=== PATIENT | female | born 1990 | race Caucasian/White ===

== ENCOUNTER → 2019-04-23 | Outpatient (CLI) | payer OTHER, SELFPAY ==
[2019-04-23 07:47] LABS: Estradiol 135.7 pg/mL; Thyroid Stim Hormone (TSH) 2.48 uIU/mL (0.358-3.74)
[2019-04-23 08:25] LABS: Progesterone Level 32.71 ng/mL (See Comment)
== END | disposition home or self-care (01) ==
LOC: LAB 06:57
DX: E28.9 Ovarian dysfunction, unspecified (principal)
CPT/HCPCS: 36415; 82670; 84144; 84443

== ENCOUNTER → 2019-04-27 | Outpatient (CLI) | payer OTHER, SELFPAY ==
[2019-04-27 15:43] LABS: hCG Titer Quant., Serum 85 mIU/mL (1-3)
== END | disposition home or self-care (01) ==
DX: E28.9 Ovarian dysfunction, unspecified (principal)
CPT/HCPCS: 36415; 84144; 84702

== ENCOUNTER → 2019-04-30 | Outpatient (CLI) | payer OTHER, SELFPAY ==
[2019-04-30 08:28] LABS: hCG Titer Quant., Serum 372 mIU/mL (1-3)
[2019-04-30 08:39] LABS: Estradiol 255.5 pg/mL; Thyroid Stim Hormone (TSH) 1.64 uIU/mL (0.358-3.74)
[2019-04-30 09:18] LABS: Progesterone Level 23.93 ng/mL (See Comment)
== END | disposition home or self-care (01) ==
LOC: LAB 06:46
DX: Z32.01 Encounter for pregnancy test, result positive (principal)
CPT/HCPCS: 36415; 82670; 84144; 84443; 84702

== ENCOUNTER → 2019-05-07 | Outpatient (CLI) | payer OTHER, SELFPAY ==
[2019-05-07 07:24] LABS: Estradiol 273.3 pg/mL
[2019-05-07 07:38] LABS: hCG Titer Quant., Serum 4877 mIU/mL (1-3)
[2019-05-07 09:04] LABS: Progesterone Level 31.56 ng/mL (See Comment)
== END | disposition home or self-care (01) ==
LOC: LAB 06:47
DX: Z32.01 Encounter for pregnancy test, result positive (principal)
CPT/HCPCS: 36415; 82670; 84144; 84443; 84702

== ENCOUNTER → 2019-05-14 | Outpatient (CLI) | payer OTHER, SELFPAY ==
[2019-05-14 07:24] LABS: Estradiol 294.9 pg/mL; Thyroid Stim Hormone (TSH) 1.31 uIU/mL (0.358-3.74)
[2019-05-14 07:38] LABS: hCG Titer Quant., Serum 20651 mIU/mL (1-3)
== END | disposition home or self-care (01) ==
DX: O09.00 Supervision of pregnancy with history of infertility, unspecified trimester (principal); Z3A.00 Weeks of gestation of pregnancy not specified
CPT/HCPCS: 36415; 82670; 84144; 84443; 84702

== ENCOUNTER 2019-12-27 19:00 | Inpatient (IN) | payer OTHER, SELFPAY ==
[2019-12-27 19:36] VITALS: BP 121/72; PULSE 109; TEMP 99; O2SAT 96; O2SAT 99
--- NOTE | 2019-12-27 19:55 | PCM.HP.OB ---
History Date of Admission: 12/27/19 Final NEERAJ: 01/04/20 Final NEERAJ Source: [place] <20 weeks Gestational age: 38 Weeks and 6 Days History of this : This is a 29 year-old, at 38.6 weeks for induction of labor for maternal obesity, BMI 48, Elevated MSAFP as recommended by MFM. Denies LOF, VB, or regular contractions. Smoking Status: Never smoker Alcohol: None Number of Fetus(es): 1 NST - FHR Rate Baby A Baseline: 150 Variability:: Moderate Accelerations:: 15 x 15 Decelerations:: None NST Reactive:: Yes FHR Category:: Category I Uterine Activity:: No contractions History Past Pregnancies: Past Pregnancies Delivery Date Name GA/ Weeks Outcome Route Wt Infant Sex Labor Length Anesthesia Delivery Location Provider FOB Labs: GBS - HB- HIV NR RPR- NR A+ Expected Infant Delivery Method: Spontaneous Vaginal Physical Exam General: Alert, Oriented x3 Abdomen: Gravid Neurological: Cranial nerves II-XII grossly intact Estimated gestational size: Large for gestational age Presentation: Cephalic Cervix Dilation (cm): 0 Assessment/Plan This is a 29 year-old, at .38.6 weeks gestation here for induction of labor. 1. Admit to L&D 2. Monitor FHR/TOCO 3. Cytotec for cervical ripening 4. Anticipate 5. Epidural if requested for pain
[2019-12-27 20:00] LABS: Absolute Lymphocyte Count 1.89 X10^3/uL (0.83-4.51); Absolute Neutrophil Count 11.5 X10^3/uL (2.0-7.7); Basophil# 0.04 X10^3/uL; Basophil% 0.3 % (0-1); Eosinophils% 0.7 % (0-5); Hematocrit 35.3 % (37-47); Hemoglobin 11.5 g/dL (12.0-15.0); Lymphocyte # 1.89 X10^3/ul (4.0); Lymphocyte % 13.1 % (19-41); Mean Corp Hgb Conc 32.6 g/dL (32-36); Mean Corpuscular Hgb 28.6 pg (27.0-32.0); Mean Corpuscular Volume 87.8 fL (81-99); Mean Platelet Vol. 11.1 fl (6.2-12.0); Monocyte# 0.71 X10^3/uL; Monocyte% 4.9 % (0-10); NRBC Flagged by Analyzer 0 % (0-5); Neutrophil # 11.53 X10^3/uL (2.7-7.7); Neutrophil % 79.9 % (47-70); Platelet Count 240 K/mm3 (150-450); RBC Distribution Width SD 50.9 fl (35.1-43.9); Red Blood Count 4.02 M/mm3 (4.2-5.4); White Blood Count 14.4 K/mm3 (4.4-11.0)
[2019-12-27 20:01] VITALS: BMI 48.2
[2019-12-27] MEDS: miSOPROStol 25 MCG TABLET PO (20:34)
[2019-12-27 21:47] VITALS: TEMP 97.4; O2SAT 98
[2019-12-27 21:48] VITALS: BP 116/55; PULSE 86
[2019-12-28] VITALS (64 sets, daily range): BP systolic 99–140; BP diastolic 50–95; PULSE 83–126; TEMP 36.1–37.3; O2SAT 96–100
--- NOTE | 2019-12-28 00:34 | PCM.PN.BLA ---
Progress Note Patient resting comfortably through the night. Some irregular contractions noted via TOCO. Second dose of Cytotec PO given. CE- C/T/H. Will continue to monitor.
[2019-12-28] MEDS: miSOPROStol 25 MCG TABLET PO ×2 (00:52→04:35)
--- NOTE | 2019-12-28 06:43 | PN_ITS ---
Progress Note Patient sleeping well through the night. Does not feel any contractions. FHT's 135bpm moderate variability. [place] picking up occasional contractions. Cat 1 tracing. Cytotec PO #3 given. CE= C/T/H. 1. Continue plan of care 2. Anticipate
[2019-12-28] MEDS: 0.9% Normal Saline Single 100 ML IV.SOLN. IY (07:00)
--- NOTE | 2019-12-28 07:07 | PCM.PN.BLA ---
Progress Note Seen at bedside, doing well. Patient reports feeling some contractions. Vaginal exam fingertip/50/-3. Garcia catheter was placed with 30 cc of normal saline. We will start Pitocin at approximately 830.
[2019-12-28] MEDS: Oxytocin 30 units/NS 500 ml 30 UNITS/500 ML IV.SOLN IV (08:53)
[2019-12-28] MEDS: Lactated Ringers 1,000 ML 50 ML IV (08:54)
--- NOTE | 2019-12-28 12:42 | PCM.PN.BLA ---
Progress Note pt seen up to chair- still comfortable. intracervical dennis out - per nursing JENNIFER 60/-3. will continue pitocin at this time. STROKE Vital Signs/Narrative: Vital Signs Temp Pulse Pulse Ox 12/28/19 12:07 97.3 F L 100 12/28/19 11:01 84 12/28/19 11:00 97.0 F L 98 12/28/19 10:52 98.3 F 126 H 12/28/19 10:35 83 12/28/19 10:02 87 12/28/19 09:33 93 12/28/19 09:29 97.0 F L 12/28/19 08:50 91
--- NOTE | 2019-12-28 17:09 | PCM.PN.BLA ---
Progress Note S: Patient feeling ctxs O: cvx - 3/70/-3 AROM clear fluid FSE & IUPC placed fhts 140 with mod variability, accels tocos Q2 min A&P: Continue pitocin induction Plan of care discussed with patient & her family STROKE Vital Signs/Narrative: Vital Signs Temp Pulse BP Pulse Ox 12/28/19 15:32 98 124/58 H 12/28/19 15:31 98.4 F 12/28/19 14:24 98.0 F 97 131/81 H 96 12/28/19 13:46 103 H 125/78 H 12/28/19 13:45 97.9 F
[2019-12-28] MEDS: Lactated Ringers 500 ML 999 ML IV (17:37)
[2019-12-28] MEDS: fentaNYL-bupivacaine (epidural) 100 ML BAG EPIDURAL ×2 (19:21→22:46)
[2019-12-28] MEDS: Lactated Ringers 1,000 ML 250 ML IV ×2 (21:07→22:10)
[2019-12-29] VITALS (36 sets, daily range): BP systolic 90–125; BP diastolic 47–84; PULSE 95–129; RESP 16–18; TEMP 36.6–37.2; O2SAT 94–99
[2019-12-29] MEDS: Lactated Ringers 1,000 ML 250 ML IV (02:06)
[2019-12-29] MEDS: fentaNYL-bupivacaine (epidural) 100 ML BAG EPIDURAL (03:44)
[2019-12-29] MEDS: Sodium Citrate/Citric Acid 30 ML UDC PO (05:49)
[2019-12-29] MEDS: Methylergonovine 0.2 MG/ML Ampul IM (06:38)
--- NOTE | 2019-12-29 07:26 | OP.PCM_ITS ---
Report of Operation Surgery/Procedure Performed:: Primary low transverse section Description of Surgical Findings:: Normal maternal uterus and adnexa Delivery Final NEERAJ: 01/04/20 Gestational age: 39 Weeks and 1 Days delicatessen store manager: Pia Archibald Type of Anesthesia:: Epidural Date of Procedure: 12/29/19 Pre-Operative Diagnosis: Failure to dilate Post-Operative Diagnosis: Failure to dilate Indications: Patient admitted for induction for elevated AFP and maternal obesity at 39 weeks. She had cytotec, intracervical dennis, AROM & pitocin. Patient failed to dilate past 3 cm & head remained high at -3. Thus decision was made to proceed with a primary section. Indications for : Failure to Progress Description of Procedure: Patient taken to OR where epidural anesthesia was dosed. She was prepped and draped in normal sterile fashion in a dorsal supine position with a leftward tilt. After ensuring adequacy of anesthesia the Pfannensteil skin incision was made and carried through to the underlying fascia with a bovie. The fascia was incised in the midline and carried laterally with the Arzola scissors. The rectus muscles were in the midline and the peritoneum was entered bluntly. The bladder flap was dissected down carefully with the Metzenbaum scissors and blunt dissection. The uterus was incised in a transverse fashion and then incision extended with cephalocaudad traction. The fetus was vertex and the head was brought to the incision in the flexed position. With good fundal pressure the head easily delivered. head was gently guided to allow delivery of anterior & posterior shoulders. No excess traction placed on head. The body delivered easily. The 3VC cord was clamped and cut after 1 minute delay and the infant handed off to the waiting RN. The placenta was delivered w/ gentle traction and fundal massage and the uterus was exteriorized and cleared of all clots and debris. The uterine incision was closed with 1 vicryl suture in a running locked fashion. The bovie was used to further obtain further hemostasis of the uterine incision. A second imbricating layer of monocryl was placed. 2 additional figure of eight sutures were placed to further obtain excellent hemostasis. The uterus was returned to the peritoneal cavity. The pelvis was irrigated & then cleared of all clots and debris. The uterine incision was reexamined and found to be hemostatic. Some fer was placed over the uterine incision due to the denuded areas. The parietal peritoneum was reapproximated with running vicryl suture. The fascia was closed with looped PDS suture in a running standard fashion. The subcutaneous tissue was examined & any bleeding bovie cauterized. The subcutaneous tissue was reapproximated with plain gut suture. The skin was closed in a subcuticular fashion by the [place] [employer]GE with me present in the labor and delivery suite. I performed the remainder of the procedure w/ assistance. Amniotic Membrane Rupture Type: Artificial Amniotic Fluid Description: Clear Placenta Disposition: [facility] Drain: Dennis to straight drain Fluids Replaced: 1500ml Cord Entanglement: None Esitmated Blood Loss (ml): 1,000ml Gender: Female - Kelley; weight = 8-10 (1 minute): 8 (5 minute): 9 Delayed cord clamping: Yes Antibiotic Given: Ancef 3 grams IV x1, Zithromax 500 mg/5 mL X1 Complications: None - Admit VTE Documentation VTE Present on Admission: No VTE Mechan Device Prophylaxis: SCD's VTE Pharm Prophylaxis ordered?: Yes
[2019-12-29] MEDS: Oxytocin 30 units/NS 500 ml 30 UNITS/500 ML IV.SOLN 167 UNITS IV (07:50)
--- NOTE | 2019-12-29 10:31 | NURSING ---
Epidural catheter removed, blue tip intact at 1015.
[2019-12-29] MEDS: Lactated Ringers 1,000 ML 100 ML IV (10:48)
[2019-12-29] MEDS: Ketorolac 30 MG/ML Syringe IV ×2 (14:30→20:39)
[2019-12-29] MEDS: 0.9% Saline Lock 10 ML Syringe IV ×2 (14:43→20:40)
[2019-12-30] VITALS (8 sets, daily range): BP systolic 106–122; BP diastolic 56–66; PULSE 103–110; RESP 16–18; TEMP 36.7–37.4; O2SAT 96–100
[2019-12-30] MEDS: Ketorolac 30 MG/ML Syringe IV ×4 (03:00→20:57)
[2019-12-30 06:57] LABS: Hematocrit 21.7 % (37-47); Mean Corp Hgb Conc 32.3 g/dL (32-36); Mean Corpuscular Hgb 28.8 pg (27.0-32.0); Mean Corpuscular Volume 89.3 fL (81-99); Mean Platelet Vol. 10.6 fl (6.2-12.0); Platelet Count 180 K/mm3 (150-450); Red Blood Count 2.43 M/mm3 (4.2-5.4); White Blood Count 12.9 K/mm3 (4.4-11.0)
[2019-12-30] MEDS: 0.9% Saline Lock 10 ML Syringe IV ×3 (08:13→20:57)
[2019-12-30] MEDS: Enoxaparin 40 MG/0.4 ML Syringe SC (10:18)
--- NOTE | 2019-12-30 10:46 | PCM.PN.OB ---
Subjective: Doing well per patient and nursing staff. Ambulating and taking PO without difficulty. Pain controlled. Garcia out and urinating, had bowel movement. Denies any chest pain, shortness of breath, dizziness, leg pain, or increased vaginal bleeding. , nursing support was having some difficulty. Planning D/C home tomorrow. - Physical Exam Vitals/I&O's: Vital Signs Temp Pulse Resp BP Pulse Ox 98.0 F 104 H 18 122/56 H 98 12/30/19 08:20 12/30/19 08:20 12/30/19 08:20 12/30/19 08:20 12/30/19 08:20 Oxygen Delivery Method Room Air Weight: 281 lb Body Mass Index (BMI) 48.2 Intake and Output for Last 24 Hours 12/28/19 12/29/19 12/31/19 23:59 23:59 00:59 Intake Total 2815.19 / 2815.19 5702.17 / 5702.17 Output Total 100 / 100 2100 / 2100 Balance 2715.19 / 2715.19 3602.17 / 3602.17 General: Alert, Oriented x3, Cooperative HEENT: Atraumatic, Normocephalic Neck: Trachea Midline Lungs: Clear to auscultation, Normal air movement, No rhonchi, No wheeze Cardiovascular: Regular rate, Regular Rhythm, No murmurs Abdomen: Bowel Sounds Present, Soft - Fundus firm 2 below U. Dressing dry and intact. Small amount of dry blood. Extremities: No edema Psych/Mental Status: Normal Affect, Appropriate Laboratory Results 12/30/19 06:40: WBC 12.9 H, RBC 2.43 L, Hgb 7.0 L, Hct 21.7 L, MCV 89.3, MCH 28.8, MCHC 32.3, RDW Std Deviation 52.0 H, RDW Coeff of Raj 16.0 H, Plt Count 180, MPV 10.6 Current Medications Acetaminophen (Tylenol) 1,000 mg PO Q8H PRN PRN Reason: Pain Score 1-3/10 Bisacodyl (Dulcolax) 10 mg RECTAL UD PRN PRN Reason: If no BM Enoxaparin Sodium (Lovenox) 40 mg SC DAILY@0600 [place] Last Admin: 12/30/19 10:18 Dose: 40 mg Documented by: Famotidine (Pepcid) 20 mg PO DAILY [facility] Ferrous Sulfate (Ferrous Sulfate) 325 mg PO 1200,1700 [facility] Hydrocortisone (Hytone) 1 applic TOPICAL TID PRN PRN; Protocol PRN Reason: Discomfort Naloxone HCl 4 mg/ Dextrose 504 mls @ 0 mls/hr IV .Q0M PRN; Protocol PRN Reason: Respiratory depression Naloxone HCl 4 mg/ Dextrose 504 mls @ 0 mls/hr IV .Q0M PRN; Protocol PRN Reason: To maintain Resp. rate >10 Ibuprofen (Motrin) 600 mg PO Q6H PRN PRN PRN Reason: Pain Score 1-3/10 Ketorolac Tromethamine (Toradol (Bkc)) 30 mg IV Q6H [facility] Stop: 12/31/19 08:01 Last Admin: 12/30/19 08:13 Dose: 30 mg Documented by: Levothyroxine Sodium (Synthroid) 25 mcg PO DAILY@0600 [facility] Methylergonovine Maleate (Methergine) 0.2 mg IM X1 PRN PRN Reason: Uterine Atony Last Admin: 12/29/19 06:38 Dose: 0.2 mg Documented by: Naloxone HCl (Narcan) 0.02 mg IV Q1M PRN PRN Reason: RR <10 and pt unresponsive Ondansetron HCl (Zofran) 4 mg IV Q4H PRN PRN PRN Reason: Nausea Oxycodone HCl (Oxyir) 5 - 10 mg PO Q4H PRN PRN PRN Reason: Pain Score 4-10/10 Multivit/Folic Acid/Iron (Prenatabs Fa) 1 tablet PO DAILY [facility] Prochlorperazine Edisylate (Compazine Iv) 10 mg IV Q6H PRN PRN PRN Reason: NAUSEA Senna/Docusate Sodium (Senokot-S, Lay-Colace) 0 tablet PO DAILY PRN PRN Reason: Constipation Simethicone (Mylicon) 80 mg PO PCHS PRN PRN Reason: Indigestion/stomach pain Last Admin: 12/29/19 20:39 Dose: 80 mg Documented by: Sodium Chloride () 5 - 15 ml IV UD PRN PRN Reason: SALINE FLUSH Last Admin: 12/30/19 08:13 Dose: 10 ml Documented by: Medical Necessity - Tobacco Use Smoking Status: Former smoker Assessment/Plan A:POD #1 Primary Low transverse section Acute blood loss anemia P: 1) Routine care. support 2) Ferrous Sulfate 325mg PO BID for anemia, to take stool softener 3) Pain controlled 4) Planning D/C home tomorrow
[2019-12-30] MEDS: Ferrous Sulfate 325 MG Tablet PO ×2 (12:10→18:23)
[2019-12-30] MEDS: Famotidine 20 MG Tablet PO (12:10)
[2019-12-30] MEDS: oxyCODONE 5 MG Tablet PO ×3 (12:33→23:30)
--- NOTE | 2019-12-30 12:40 | NURSING ---
Enedelia RN, called this RN regarding feeding plan. Order received to begin pumping q3hrs for 20 min, begin with massage for 15-30 seconds and then hand express, offer breast to baby for 3-5min and then pump. Use nipple shield as needed. Feed baby any expressed colostrum. SNEHAwguillaume IBCLC to see pt tomorrow morning at 0730. Mother informed of this feeding plan. Nathalia declines needing to see at this time, will inform RN if she changes her mind, will use telehealth today if needed. Dr. Childress made aware.
[2019-12-30] MEDS: Levothyroxine 25 MCG TABLET PO (13:29)
--- NOTE | 2019-12-30 15:13 | NURSING ---
Pt pumped from [id number] after instructed. No colostrum noted. Pt going to telehealth with Enedelia PEREZ lactation at 1600 for next feeding. Enedelia PEREZ aware.
[2019-12-31] VITALS (11 sets, daily range): BP systolic 103–128; BP diastolic 49–76; PULSE 93–103; RESP 16; TEMP 36.7–37.1; O2SAT 95–99
[2019-12-31] MEDS: 0.9% Saline Lock 10 ML Syringe IV ×6 (02:58→18:17)
[2019-12-31] MEDS: Ketorolac 30 MG/ML Syringe IV ×2 (02:58→09:28)
[2019-12-31 05:50] LABS: Absolute Lymphocyte Count 1.61 X10^3/uL (0.83-4.51); Absolute Neutrophil Count 7.7 X10^3/uL (2.0-7.7); Basophil# 0.03 X10^3/uL; Basophil% 0.3 % (0-1); Hematocrit 20.4 % (37-47); Hemoglobin 6.4 g/dL (12.0-15.0); Lymphocyte # 1.61 X10^3/ul (4.0); Lymphocyte % 15.9 % (19-41); Mean Corp Hgb Conc 31.4 g/dL (32-36); Mean Corpuscular Hgb 28.3 pg (27.0-32.0); Mean Corpuscular Volume 90.3 fL (81-99); Mean Platelet Vol. 10.7 fl (6.2-12.0); Monocyte# 0.59 X10^3/uL; Monocyte% 5.8 % (0-10); NRBC Flagged by Analyzer 0 % (0-5); Neutrophil # 7.74 X10^3/uL (2.7-7.7); Neutrophil % 76.3 % (47-70); Platelet Count 189 K/mm3 (150-450); RBC Distribution Width CV 16.2 % (11.6-14.6); RBC Distribution Width SD 53.9 fl (35.1-43.9); Red Blood Count 2.26 M/mm3 (4.2-5.4); White Blood Count 10.1 K/mm3 (4.4-11.0)
[2019-12-31] MEDS: Levothyroxine 25 MCG TABLET PO (06:12)
[2019-12-31] MEDS: Enoxaparin 40 MG/0.4 ML Syringe SC (06:12)
[2019-12-31] MEDS: oxyCODONE 5 MG Tablet PO ×3 (06:18→21:44)
--- NOTE | 2019-12-31 08:50 | PCM.PN.OB ---
Subjective: Patient doing well today. She denies lightheadedness or dizziness. She has only been ambulating in the room and down the halls. She notes fatigue this morning. She denies chest pain, shortness of breath, leg pain. Lochia normal. She is ambulating and voiding without difficulty. Tolerating regular diet. - Physical Exam Vitals/I&O's: Vital Signs Temp Pulse Resp BP Pulse Ox 98.6 F 93 16 103/54 L 95 12/31/19 03:00 12/31/19 03:00 12/31/19 03:00 12/31/19 03:00 12/31/19 03:00 Oxygen Delivery Method Room Air Weight: 281 lb Body Mass Index (BMI) 48.2 Intake and Output for Last 24 Hours 12/29/19 12/30/19 12/31/19 22:59 23:59 23:59 Intake Total Output Total Balance General: Alert, No apparent distress HEENT: Atraumatic Abdomen: Soft, Non Tender, - - FF@U, incision with dressing in place Extremities: No Calf Tenderness Skin: No rashes Neurological: Neuro grossly intact Psych/Mental Status: Normal Affect, Appropriate Laboratory Results 12/31/19 05:35: WBC 10.1, RBC 2.26 L, Hgb 6.4 L, Hct 20.4 L, MCV 90.3, MCH 28.3, MCHC 31.4 L, RDW Std Deviation 53.9 H, RDW Coeff of Raj 16.2 H, Plt Count 189, MPV 10.7, Immature Gran % (Auto) 0.700, Neut % (Auto) 76.3 H, Lymph % (Auto) 15.9 L, [place] % (Auto) 5.8, Eos % (Auto) 1.0, Baso % (Auto) 0.3, Absolute Neuts (auto) 7.7, Absolute Lymphs (auto) 1.61, Nucleated RBC % 0 Current Medications Acetaminophen (Tylenol) 1,000 mg PO Q8H PRN PRN Reason: Pain Score 1-3/10 Bisacodyl (Dulcolax) 10 mg RECTAL UD PRN PRN Reason: If no BM Enoxaparin Sodium (Lovenox) 40 mg SC DAILY@0600 [facility] Last Admin: 12/31/19 06:12 Dose: 40 mg Documented by: Famotidine (Pepcid) 20 mg PO DAILY [facility] Last Admin: 12/30/19 12:10 Dose: 20 mg Documented by: Ferrous Sulfate (Ferrous Sulfate) 325 mg PO 1200,1700 [facility] Last Admin: 12/30/19 18:23 Dose: 325 mg Documented by: Hydrocortisone (Hytone) 1 applic TOPICAL TID PRN PRN; Protocol PRN Reason: Discomfort Naloxone HCl 4 mg/ Dextrose 504 mls @ 0 mls/hr IV .Q0M PRN; Protocol PRN Reason: Respiratory depression Naloxone HCl 4 mg/ Dextrose 504 mls @ 0 mls/hr IV .Q0M PRN; Protocol PRN Reason: To maintain Resp. rate >10 Ibuprofen (Motrin) 600 mg PO Q6H PRN PRN PRN Reason: Pain Score 1-3/10 Levothyroxine Sodium (Synthroid) 25 mcg PO DAILY@0600 [facility] Last Admin: 12/31/19 06:12 Dose: 25 mcg Documented by: Methylergonovine Maleate (Methergine) 0.2 mg IM X1 PRN PRN Reason: Uterine Atony Last Admin: 12/29/19 06:38 Dose: 0.2 mg Documented by: Naloxone HCl (Narcan) 0.02 mg IV Q1M PRN PRN Reason: RR <10 and pt unresponsive Ondansetron HCl (Zofran) 4 mg IV Q4H PRN PRN PRN Reason: Nausea Oxycodone HCl (Oxyir) 5 - 10 mg PO Q4H PRN PRN PRN Reason: Pain Score 4-10/10 Last Admin: 12/31/19 06:18 Dose: 5 mg Documented by: Multivit/Folic Acid/Iron (Prenatabs Fa) 1 tablet PO DAILY [facility] Prochlorperazine Edisylate (Compazine Iv) 10 mg IV Q6H PRN PRN PRN Reason: NAUSEA Senna/Docusate Sodium (Senokot-S, Lay-Colace) 0 tablet PO DAILY PRN PRN Reason: Constipation Simethicone (Mylicon) 80 mg PO PCHS PRN PRN Reason: Indigestion/stomach pain Last Admin: 12/30/19 19:36 Dose: 80 mg Documented by: Sodium Chloride () 5 - 15 ml IV UD PRN PRN Reason: SALINE FLUSH Last Admin: 12/31/19 02:58 Dose: 10 ml Documented by: Medical Necessity - Tobacco Use Smoking Status: Former smoker Assessment/Plan Patient is postop day 2 from a section. She has acute blood loss anemia with a hemoglobin of 6.4 this morning. She notes fatigue. She has not been ambulating in the halls. Discussed risks and benefits of a blood transfusion and patient desires to proceed with 2 units of packed red blood cells. Consent was obtained at bedside. Routine postop care.
[2019-12-31] MEDS: Famotidine 20 MG Tablet PO (09:28)
[2019-12-31] MEDS: Prenatal Vits Tablet 1 TABLET PO (09:28)
[2019-12-31] MEDS: Senna/Docusate Sodium 1 Tablet PO (10:32)
[2019-12-31] MEDS: Ferrous Sulfate 325 MG Tablet PO ×2 (13:26→17:51)
[2019-12-31] MEDS: Ibuprofen 600 MG Tablet PO (17:51)
[2020-01-01] MEDS: Ibuprofen 600 MG Tablet PO ×2 (01:29→07:09)
[2020-01-01 01:31] VITALS: BP 111/71; PULSE 88; RESP 16; TEMP 36.9
[2020-01-01] MEDS: Levothyroxine 25 MCG TABLET PO (06:39)
[2020-01-01] MEDS: Enoxaparin 40 MG/0.4 ML Syringe SC (06:39)
--- NOTE | 2020-01-01 08:06 | DCINST_ITS ---
Discharge Diet: No Restrictions Discharge Activity: May not drive while taking narcotic pain medications., May Shower May resume sexual activity in: 6 weeks Weight Bearing Status: Weight bearing as tolerated Call your doctor if your incision/area has: Continuous Slow Oozing, Sudden Increased Bleeding, Increased Pain/ Swelling, Increased Redness, Foul Smelling Discharge, Swelling at the incision site Suture Line Care: Avoid Pulling/Pushing Cleanse incision/area with: Soap & Water Additional Instructions: If you experience any of the following, contact your healthcare provider. * Bleeding that soaks a pad every hour for 2 hours * Fever 100.4 or higher * Unrelieved incision or abdominal pain * Swelling, redness, discharge or bleeding from your incision or epi siotomy site * Your incision begins to separate * Problems urinating (including inability to urinate or burning while urinating). * Visual changes * Severe headache * Flu-like symptoms * Pain or redness in one of both of your breasts * Pain, warmth, tenderness or swelling in your legs, especially the calf area * Frequent nausea and vomiting * Symptoms of depression or anxiety If you experience any of the following, call 911 or go to the nearest Emergency Room. * Chest pain * Problems breathing * Seizure activity * Partial or complete paralysis of a body part, slurred speech, weakness or drooping of the face, or a sudden inability to walk or hold your balance Allergies/Adverse Reactions: Allergies No Known Allergies Allergy (Verified 12/27/19 20:02) Medications to take at Discharge Famotidine [Pepcid] 20 mg PO DAILY 12/27/19 Ferrous Sulfate [Slow Fe] 45 mg PO DAILY 12/27/19 Levothyroxine [Synthroid] 25 mcg PO DAILY 12/27/19 Vits [Prenatabs FA ] 1 tab PO DAILY 12/27/19 Acetaminophen [Tylenol] 1,000 mg PO Q8H PRN tablet 01/01/20 Ferrous Sulfate 325 mg PO 1200,1700 #60 tab 01/01/20 Ibuprofen [Motrin] 600 mg PO Q6H PRN PRN tablet 01/01/20 Oxycodone [Oxyir] 5 - 10 mg PO Q4H PRN PRN 4 Days #15 tab 01/01/20 The following prescriptions were given: Ferrous Sulfate 325 mg PO 1200,1700 #60 tab Prescription Printed Oxycodone [Oxyir] 5 - 10 mg PO Q4H PRN PRN 4 Days #15 tab PRN Reason: Pain Score 4-10/10 Prescription Printed Follow-Up: Call to make an appointment with your doctor for an incision check in 1-2 weeks. You will also need a 6 week post- follow up appointment. Test results from this visit will be discussed in further detail at your follow- up appointment, if applicable. Primary Care Physician: Tien Kirk MD [Primary Care Provider] -
--- NOTE | 2020-01-01 08:07 | PN.OBGYN_ITS ---
Subjective: No complaints. Feels improved after blood transfusion. - Physical Exam Vitals/I&O's: Vital Signs Temp Pulse Resp BP Pulse Ox 98.4 F 88 16 111/71 99 01/01/20 01:31 01/01/20 01:31 01/01/20 01:31 01/01/20 01:31 12/31/19 18:19 Oxygen Delivery Method Room Air Weight: 281 lb Body Mass Index (BMI) 48.2 Intake and Output for Last 24 Hours 12/30/19 12/31/19 01/01/20 23:59 23:59 23:59 Intake Total 800 / 800 Balance 800 / 800 General: Alert, Oriented x3 Abdomen: Soft, Non Tender, Non-Distended - ff mid & below umb; incision - bandage dry & intact Extremities: No Calf Tenderness Neurological: Cranial nerves II-XII grossly intact Laboratory Results 12/31/19 10:10: Blood Type A POSITIVE, Antibody Screen NEGATIVE, Crossmatch See Detail Current Medications Acetaminophen (Tylenol) 1,000 mg PO Q8H PRN PRN Reason: Pain Score 1-3/10 Bisacodyl (Dulcolax) 10 mg RECTAL UD PRN PRN Reason: If no BM Enoxaparin Sodium (Lovenox) 40 mg SC DAILY@0600 [facility] Last Admin: 01/01/20 06:39 Dose: 40 mg Documented by: Famotidine (Pepcid) 20 mg PO DAILY [facility] Last Admin: 12/31/19 09:28 Dose: 20 mg Documented by: Ferrous Sulfate (Ferrous Sulfate) 325 mg PO 1200,1700 [facility] Last Admin: 12/31/19 17:51 Dose: 325 mg Documented by: Hydrocortisone (Hytone) 1 applic TOPICAL TID PRN PRN; Protocol PRN Reason: Discomfort Naloxone HCl 4 mg/ Dextrose 504 mls @ 0 mls/hr IV .Q0M PRN; Protocol PRN Reason: Respiratory depression Naloxone HCl 4 mg/ Dextrose 504 mls @ 0 mls/hr IV .Q0M PRN; Protocol PRN Reason: To maintain Resp. rate >10 Sodium Chloride () 500 mls @ 15 mls/hr IV PRN PRN PRN Reason: Blood Transfusion Ibuprofen (Motrin) 600 mg PO Q6H PRN PRN PRN Reason: Pain Score 1-3/10 Last Admin: 01/01/20 07:09 Dose: 600 mg Documented by: Levothyroxine Sodium (Synthroid) 25 mcg PO DAILY@0600 [facility] Last Admin: 01/01/20 06:39 Dose: 25 mcg Documented by: Methylergonovine Maleate (Methergine) 0.2 mg IM X1 PRN PRN Reason: Uterine Atony Last Admin: 12/29/19 06:38 Dose: 0.2 mg Documented by: Naloxone HCl (Narcan) 0.02 mg IV Q1M PRN PRN Reason: RR <10 and pt unresponsive Ondansetron HCl (Zofran) 4 mg IV Q4H PRN PRN PRN Reason: Nausea Oxycodone HCl (Oxyir) 5 - 10 mg PO Q4H PRN PRN PRN Reason: Pain Score 4-10/10 Last Admin: 12/31/19 21:44 Dose: 5 mg Documented by: Multivit/Folic Acid/Iron (Prenatabs Fa) 1 tablet PO DAILY [facility] Last Admin: 12/31/19 09:28 Dose: 1 tablet Documented by: Prochlorperazine Edisylate (Compazine Iv) 10 mg IV Q6H PRN PRN PRN Reason: NAUSEA Senna/Docusate Sodium (Senokot-S, Lay-Colace) 0 tablet PO DAILY PRN PRN Reason: Constipation Last Admin: 12/31/19 10:32 Dose: 2 tablet Documented by: Simethicone (Mylicon) 80 mg PO PCHS PRN PRN Reason: Indigestion/stomach pain Last Admin: 12/30/19 19:36 Dose: 80 mg Documented by: Sodium Chloride () 5 - 15 ml IV UD PRN PRN Reason: SALINE FLUSH Last Admin: 12/31/19 18:17 Dose: 10 ml Documented by: Medical Necessity - Tobacco Use Smoking Status: Former smoker Assessment/Plan POD#3 D/c home Heme - repeat cbc pending after blood transfusion yesterday. Patient is HDS & feels well.
--- NOTE | 2020-01-01 08:09 | PCM.DC.SUM ---
Discharge Date and Diagnosis Date of Admission: 12/27/19 Date of Discharge: 01/01/20 Hospital Course and Treatment Summary of Care Provided: The patient is a 29 year old F who was admitted for 39wk IOL. She proceeded to having a primary - see operative note. PP course: (1) Heme - received blood transfusion for acute blood loss anemia. (2) ID - no signs infectin (3) GI - tolerating regular diet (4) D/c home on POD#3 with prescriptions - Physical Exam Vitals/I&O's: Vital Signs Temp Pulse Resp BP Pulse Ox 98.4 F 88 16 111/71 99 01/01/20 01:31 01/01/20 01:31 01/01/20 01:31 01/01/20 01:31 12/31/19 18:19 Oxygen Delivery Method Room Air Weight: 281 lb Body Mass Index (BMI) 48.2 Intake and Output for Last 24 Hours 12/30/19 12/31/19 01/01/20 23:59 23:59 23:59 Intake Total 800 / 800 Balance 800 / 800 Laboratory Results 12/31/19 10:10: Blood Type A POSITIVE, Antibody Screen NEGATIVE, Crossmatch See Detail Current Medications Acetaminophen (Tylenol) 1,000 mg PO Q8H PRN PRN Reason: Pain Score 1-3/10 Bisacodyl (Dulcolax) 10 mg RECTAL UD PRN PRN Reason: If no BM Enoxaparin Sodium (Lovenox) 40 mg SC DAILY@0600 [facility] Last Admin: 01/01/20 06:39 Dose: 40 mg Documented by: Famotidine (Pepcid) 20 mg PO DAILY [facility] Last Admin: 12/31/19 09:28 Dose: 20 mg Documented by: Ferrous Sulfate (Ferrous Sulfate) 325 mg PO 1200,1700 [facility] Last Admin: 12/31/19 17:51 Dose: 325 mg Documented by: Hydrocortisone (Hytone) 1 applic TOPICAL TID PRN PRN; Protocol PRN Reason: Discomfort Naloxone HCl 4 mg/ Dextrose 504 mls @ 0 mls/hr IV .Q0M PRN; Protocol PRN Reason: Respiratory depression Naloxone HCl 4 mg/ Dextrose 504 mls @ 0 mls/hr IV .Q0M PRN; Protocol PRN Reason: To maintain Resp. rate >10 Sodium Chloride () 500 mls @ 15 mls/hr IV PRN PRN PRN Reason: Blood Transfusion Ibuprofen (Motrin) 600 mg PO Q6H PRN PRN PRN Reason: Pain Score 1-3/10 Last Admin: 01/01/20 07:09 Dose: 600 mg Documented by: Levothyroxine Sodium (Synthroid) 25 mcg PO DAILY@0600 [facility] Last Admin: 01/01/20 06:39 Dose: 25 mcg Documented by: Methylergonovine Maleate (Methergine) 0.2 mg IM X1 PRN PRN Reason: Uterine Atony Last Admin: 12/29/19 06:38 Dose: 0.2 mg Documented by: Naloxone HCl (Narcan) 0.02 mg IV Q1M PRN PRN Reason: RR <10 and pt unresponsive Ondansetron HCl (Zofran) 4 mg IV Q4H PRN PRN PRN Reason: Nausea Oxycodone HCl (Oxyir) 5 - 10 mg PO Q4H PRN PRN PRN Reason: Pain Score 4-10/10 Last Admin: 12/31/19 21:44 Dose: 5 mg Documented by: Multivit/Folic Acid/Iron (Prenatabs Fa) 1 tablet PO DAILY [facility] Last Admin: 12/31/19 09:28 Dose: 1 tablet Documented by: Prochlorperazine Edisylate (Compazine Iv) 10 mg IV Q6H PRN PRN PRN Reason: NAUSEA Senna/Docusate Sodium (Senokot-S, Lay-Colace) 0 tablet PO DAILY PRN PRN Reason: Constipation Last Admin: 12/31/19 10:32 Dose: 2 tablet Documented by: Simethicone (Mylicon) 80 mg PO PCHS PRN PRN Reason: Indigestion/stomach pain Last Admin: 12/30/19 19:36 Dose: 80 mg Documented by: Sodium Chloride () 5 - 15 ml IV UD PRN PRN Reason: SALINE FLUSH Last Admin: 12/31/19 18:17 Dose: 10 ml Documented by: Discharge Diet: No Restrictions Discharge Activity: May not drive while taking narcotic pain medications., May Shower May resume sexual activity in: 6 weeks Weight Bearing Status: Weight bearing as tolerated Call your doctor if your incision/area has: Continuous Slow Oozing, Sudden Increased Bleeding, Increased Pain/ Swelling, Increased Redness, Foul Smelling Discharge, Swelling at the incision site Suture Line Care: Avoid Pulling/Pushing Cleanse incision/area with: Soap & Water Home Medications: Medications to take at Discharge Famotidine [Pepcid] 20 mg PO DAILY 12/27/19 Ferrous Sulfate [Slow Fe] 45 mg PO DAILY 12/27/19 Levothyroxine [Synthroid] 25 mcg PO DAILY 12/27/19 Vits [Prenatabs FA ] 1 tab PO DAILY 12/27/19 Acetaminophen [Tylenol] 1,000 mg PO Q8H PRN tablet 01/01/20 Ferrous Sulfate 325 mg PO 1200,1700 #60 tab 01/01/20 Ibuprofen [Motrin] 600 mg PO Q6H PRN PRN tablet 01/01/20 Oxycodone [Oxyir] 5 - 10 mg PO Q4H PRN PRN 4 Days #15 tab 01/01/20 Following Prescrptions Were Given to Patient: Ferrous Sulfate 325 mg PO 1200,1700 #60 tab Prescription Printed Oxycodone [Oxyir] 5 - 10 mg PO Q4H PRN PRN 4 Days #15 tab PRN Reason: Pain Score 4-10/10 Prescription Printed Primary Care Physician: Tien Kirk MD [Primary Care Provider] - Medical Necessity - Tobacco Use Smoking Status: Former smoker Meaningful Use Info Meaningful Use Diagnoses (Choose all that apply): None applicable
[2020-01-01 09:00] VITALS: BP 111/66; PULSE 93; RESP 20; TEMP 36.3
[2020-01-01 09:03] LABS: Absolute Lymphocyte Count 1.37 X10^3/uL (0.83-4.51); Absolute Neutrophil Count 7.6 X10^3/uL (2.0-7.7); Basophil# 0.04 X10^3/uL; Basophil% 0.4 % (0-1); Eosinophil# 0.24 X10^3/uL; Eosinophils% 2.5 % (0-5); Hematocrit 28.9 % (37-47); Hemoglobin 9.2 g/dL (12.0-15.0); Lymphocyte # 1.37 X10^3/ul (4.0); Lymphocyte % 14.1 % (19-41); Mean Corp Hgb Conc 31.8 g/dL (32-36); Mean Corpuscular Hgb 28.8 pg (27.0-32.0); Mean Corpuscular Volume 90.6 fL (81-99); Mean Platelet Vol. 10.6 fl (6.2-12.0); Monocyte# 0.37 X10^3/uL; Monocyte% 3.8 % (0-10); NRBC Flagged by Analyzer 0 % (0-5); Neutrophil # 7.56 X10^3/uL (2.7-7.7); Neutrophil % 78.1 % (47-70); Platelet Count 275 K/mm3 (150-450); RBC Distribution Width CV 15.6 % (11.6-14.6); RBC Distribution Width SD 50.9 fl (35.1-43.9); Red Blood Count 3.19 M/mm3 (4.2-5.4); White Blood Count 9.7 K/mm3 (4.4-11.0)
[2020-01-01] MEDS: oxyCODONE 5 MG Tablet PO (10:32)
[2020-01-01] MEDS: Famotidine 20 MG Tablet PO (10:32)
[2020-01-01] MEDS: Prenatal Vits Tablet 1 TABLET PO (10:33)
== END 2020-01-01 12:30 | disposition home or self-care (01) | DRG 787 ==
PROVIDERS: Advanced Practice Midwife; Admitting Provider Obstetrics & Gynecology; Referring Provider Obstetrics & Gynecology; Visit Provider Obstetrics & Gynecology
DX: O99.214 Obesity complicating childbirth (principal); D62 Acute posthemorrhagic anemia; O62.2 Other uterine inertia; O90.81 Anemia of the puerperium; Z3A.39 39 weeks gestation of pregnancy; Z37.0 Single live birth; Z87.891 Personal history of nicotine dependence
CPT/HCPCS: 59025; 59050; 85025; 85027; 86850; 86900; 86901; 86920; 86922; 94762; 99218; 99251; J7120; P9016; A4216; G0378; G0463; J2405

== ENCOUNTER 2021-11-11 12:18 | Outpatient (CLI) | payer OTHER, SELFPAY ==
--- NOTE | 2021-11-11 12:24 | RAD_ITS ---
STUDY: HYSTEROSALPINGOGRAM. REASON FOR EXAM: Female, 31 years old. INFERTILITY FLUOROSCOPY TIME (if supplied): ( 11 seconds ) minutes/seconds. One image was obtained. TECHNIQUE: A hysterosalpingogram was performed by the special events driver. Imaging was submitted. COMPARISON: None. FINDINGS: The uterus is unremarkable. Both fallopian tubes are patent with free spill bilaterally. RAD/Salpingogram IMPRESSION: Normal hysterosalpingogram. Electronically Signed: Pastor Sandoval MD at 13:39 EST , Service support ,
== END 2021-11-11 23:59 | disposition short-term general hospital (02) ==
PROVIDERS: Referring Provider Obstetrics & Gynecology; Visit Provider Obstetrics & Gynecology
DX: Z31.41 Encounter for fertility testing (principal)
CPT/HCPCS: 58340; 74740; Q9967

== ENCOUNTER 2021-11-20 09:25 | Outpatient (CLI) | payer OTHER, SELFPAY ==
--- NOTE | 2021-11-20 09:27 | BI_ITS ---
MAMMOGRAPHY - BILATERAL DIAGNOSTIC REASON FOR EXAM: Female, 31 years old. 2-3 week history of left superficial breast lump at the 6 to 7 o''clock position. PERTINENT HISTORY: Non-contributory. TECHNIQUE: Digital bilateral breast magdalena (3D mammographic acquisition) in the CC and MLO projections. 2-D mediolateral oblique (MLO) and craniocaudad (CC) views of both breasts were obtained. CAD: Full Field Digital Mammography with Computer Added Detection was performed. COMPARISON: Comparison is made with prior examination of 01/20/2016. FINDINGS: Breast Composition: There are scattered areas of fibroglandular density. There are no dominant masses or suspicious calcifications. No other significant abnormalities are identified. There has been no significant change since the prior study. BI/DIAG MAMM W/CAD, BILAT IMPRESSION: Stable bilateral diagnostic mammogram. With the patient''s history of a palpable superficial breast lump at the 6 to 7 o''clock position of the left breast, correlation with ultrasound is recommended. ASSESSMENT CATEGORY: BIRADS Category 0: Incomplete. Need additional imaging evaluation. A letter regarding these results will be sent to the patient by the facility within 30 days. Approximately 10% of breast cancers are not detected by mammography. A normal mammogram should not delay biopsy of a clinically suspicious abnormality. Electronically Signed: Pastor Sandoval MD at 13:27 EST ,
--- NOTE | 2021-11-20 09:28 | US_ITS ---
STUDY: ULTRASOUND BREAST - LEFT REASON FOR EXAM: Female, 31 years old. Small superficial palpable lump in the 6 to 7 o''clock position of the left breast. TECHNIQUE: Axial and longitudinal images of the LEFT breast were performed with a high resolution ultrasound transducer. # OF IMAGES: 14 COMPARISON: Comparison is made with prior mammogram done earlier today. FINDINGS: LEFT Breast: The palpable abnormality corresponds to a 7 mm x 6 mm x 3 mm hypoechoic nodule in the subcutaneous tissues. This may represent a sebaceous cyst. US/Breast Limited Unilateral IMPRESSION: Superficial small hypoechoic nodule within the subcutaneous tissues at the 7 o''clock position of the breast at 6 cm from the nipple. This most likely represents a sebaceous cyst. ASSESSMENT CATEGORY: BIRADS Category 2: Benign. A letter regarding these results will be sent to the patient by the facility within 30 days. Electronically Signed: Pastor Sandoval MD at 11:18 EST ,
== END 2021-11-20 23:59 | disposition short-term general hospital (02) ==
PROVIDERS: Referring Provider Obstetrics & Gynecology; Visit Provider Obstetrics & Gynecology
DX: N63.20 Unspecified lump in the left breast, unspecified quadrant (principal)
CPT/HCPCS: 76642; 77062; 77066; G0279

== ENCOUNTER 2021-12-04 07:50 | Outpatient (CLI) | payer OTHER, SELFPAY ==
[2021-12-04 08:36] LABS: Estradiol 37.8 pg/mL; Follicle Stimulating Hormone 5.7 mIU/mL; Luteinizing Hormone 4.1 mIU/mL; Thyroid Stim Hormone (TSH) 2.34 uIU/mL (0.358-3.74)
[2021-12-04 08:40] LABS: Progesterone Level 0.32 ng/mL (See Comment); hCG Titer Quant., Serum < 1 mIU/mL (1-3)
== END 2021-12-04 23:59 | disposition home or self-care (01) ==
LOC: LAB 07:53
PROVIDERS: Referring Provider Obstetrics & Gynecology Reproductive Endocrinology; Visit Provider Obstetrics & Gynecology Reproductive Endocrinology
DX: Z31.83 Encounter for assisted reproductive fertility procedure cycle (principal)
CPT/HCPCS: 36415; 82670; 83001; 83002; 84144; 84443; 84702

== ENCOUNTER 2021-12-11 10:06 | Outpatient (CLI) | payer OTHER, SELFPAY ==
[2021-12-11 10:45] LABS: Luteinizing Hormone 4.6 mIU/mL
[2021-12-11 11:20] LABS: Progesterone Level < 0.21 ng/mL (See Comment)
== END 2021-12-11 23:59 | disposition home or self-care (01) ==
LOC: LAB 10:08
PROVIDERS: Referring Provider Obstetrics & Gynecology Reproductive Endocrinology; Visit Provider Obstetrics & Gynecology Reproductive Endocrinology
DX: Z31.83 Encounter for assisted reproductive fertility procedure cycle (principal)
CPT/HCPCS: 36415; 82670; 83002; 84144

== ENCOUNTER 2021-12-23 07:29 | Outpatient (CLI) | payer OTHER, SELFPAY | END 2021-12-23 23:59 | disposition home or self-care (01) | LOC: LAB 07:31 | PROVIDERS: Referring Provider Obstetrics & Gynecology Reproductive Endocrinology; Visit Provider Obstetrics & Gynecology Reproductive Endocrinology | DX: Z31.49 Encounter for other procreative investigation and testing (principal) | CPT/HCPCS: 36415; 82670; 84144 ==

== ENCOUNTER 2021-12-26 07:06 | Outpatient (CLI) | payer OTHER, SELFPAY ==
[2021-12-26 08:16] LABS: hCG Titer Quant., Serum 85 mIU/mL (1-3)
[2021-12-28 08:25] LABS: Progesterone Level 49.51 ng/mL (See Comment)
== END 2021-12-26 23:59 | disposition home or self-care (01) ==
LOC: LAB 07:08
PROVIDERS: Referring Provider Obstetrics & Gynecology Reproductive Endocrinology; Visit Provider Obstetrics & Gynecology Reproductive Endocrinology
DX: Z32.00 Encounter for pregnancy test, result unknown (principal)
CPT/HCPCS: 36415; 84144; 84702

== ENCOUNTER 2021-12-28 08:31 | Outpatient (CLI) | payer OTHER, SELFPAY ==
[2021-12-28 09:15] LABS: Progesterone Level 36.76 ng/mL (See Comment)
[2021-12-28 09:16] LABS: hCG Titer Quant., Serum 242 mIU/mL (1-3)
== END 2021-12-28 23:59 | disposition home or self-care (01) ==
LOC: LAB 08:32
PROVIDERS: Visit Provider Obstetrics & Gynecology Reproductive Endocrinology
DX: Z32.00 Encounter for pregnancy test, result unknown (principal)
CPT/HCPCS: 36415; 84144; 84702

== ENCOUNTER 2021-12-30 08:06 | Outpatient (CLI) | payer OTHER, SELFPAY ==
[2021-12-30 08:41] LABS: hCG Titer Quant., Serum 543 mIU/mL (1-3)
[2021-12-30 08:42] LABS: Progesterone Level 43.26 ng/mL (See Comment)
[2021-12-30 08:46] LABS: Estradiol 231.2 pg/mL; Thyroid Stim Hormone (TSH) 2.31 uIU/mL (0.358-3.74)
== END 2021-12-30 23:59 | disposition home or self-care (01) ==
LOC: LAB 08:08
PROVIDERS: Referring Provider Obstetrics & Gynecology Reproductive Endocrinology; Visit Provider Obstetrics & Gynecology Reproductive Endocrinology
DX: Z32.01 Encounter for pregnancy test, result positive (principal)
CPT/HCPCS: 36415; 82670; 84144; 84443; 84702

== ENCOUNTER 2022-01-06 07:28 | Outpatient (CLI) | payer OTHER, SELFPAY ==
[2022-01-06 08:13] LABS: Estradiol 190.4 pg/mL
[2022-01-06 08:35] LABS: hCG Titer Quant., Serum 7032 mIU/mL (1-3)
[2022-01-06 08:39] LABS: Progesterone Level 58.06 ng/mL (See Comment)
== END 2022-01-06 23:59 | disposition home or self-care (01) ==
LOC: LAB 07:29
PROVIDERS: Referring Provider Obstetrics & Gynecology Reproductive Endocrinology; Visit Provider Obstetrics & Gynecology Reproductive Endocrinology
DX: O09.90 Supervision of high risk pregnancy, unspecified, unspecified trimester (principal)
CPT/HCPCS: 36415; 82670; 84144; 84702

== ENCOUNTER 2022-01-13 07:33 | Outpatient (CLI) | payer OTHER, SELFPAY ==
[2022-01-13 08:53] LABS: Estradiol 196.3 pg/mL
[2022-01-13 09:12] LABS: hCG Titer Quant., Serum 28184 mIU/mL (1-3)
[2022-01-13 10:43] LABS: Progesterone Level 46.24 ng/mL (See Comment)
== END 2022-01-13 23:59 | disposition home or self-care (01) ==
LOC: LAB 07:35
PROVIDERS: Referring Provider Obstetrics & Gynecology Reproductive Endocrinology; Visit Provider Obstetrics & Gynecology Reproductive Endocrinology
DX: Z32.01 Encounter for pregnancy test, result positive (principal)
CPT/HCPCS: 36415; 82670; 84144; 84702

== ENCOUNTER 2022-01-20 07:39 | Outpatient (CLI) | payer OTHER, SELFPAY ==
[2022-01-20 08:15] LABS: Estradiol 217.8 pg/mL
[2022-01-20 08:42] LABS: Progesterone Level 49.09 ng/mL (See Comment)
== END 2022-01-20 23:59 | disposition home or self-care (01) ==
LOC: LAB 07:40
PROVIDERS: Referring Provider Obstetrics & Gynecology Reproductive Endocrinology; Visit Provider Obstetrics & Gynecology Reproductive Endocrinology
DX: Z32.01 Encounter for pregnancy test, result positive (principal)
CPT/HCPCS: 36415; 82670; 84144; 84702

== ENCOUNTER 2022-08-30 09:10 | Inpatient (IN) | payer OTHER, SELFPAY ==
--- NOTE | 2022-08-26 11:49 | PCM.HP.BLA ---
History and Physical Date of Admission: 08/30/22 Pre-Op History and Physical ? HPI: The patient is a 32 year old female presenting for pre-operative visit. She is scheduled for , for elective repeat cs on 08/30/22. Procedure discussed along with risks, benefits and complications. Other alternatives discussed for management. Consent form signed? Yes. ? ? PAST MEDICAL HISTORY PAST MEDICAL HISTORY Diagnosis Date ? Anemia complicating , third trimester 10/08/2019 ? anxiety ? ? Breast cyst, right 2016 ? beneign cyst after mammogram ? History of blood transfusion ? ? 2 days ? Infertility management ? ? Infertility, female ? ? Irregular menses ? ? PCOD (polycystic ovarian disease) ? ? diagnosis in ? Thyroid nodule ? ? ? PAST SURGICAL HISTORY PAST SURGICAL HISTORY Procedure Laterality Date ? DELIVERY ONLY ? 12/29/2019 ? C/S low transverse ? HSG ? ? ? HYSTEROSCOPY ? ? ? LAPAROSCOPY DIAGNOSTIC ? ? ? SONOHYSTEROGRAPHY (SIS) US WHI ? CURRENT MEDICATIONS Current Outpatient Medications Medication Sig Dispense Refill ? Breast Pump Use as directed 1 Each 0 ? Ferrous Sulfate (SLOW FE) 142 mg (45 mg iron) TbER Take by mouth. ? ? ? nystatin (MYCOSTATIN) powder Apply 1 application to affected area four times daily. Until redness resolved. Then use once daily ongoing. 60 g 1 ? aspirin, enteric coated (ASPIRIN, ENTERIC COATED) 81 mg EC tablet Take 81 mg by mouth once daily. ? ? ? naltrexone 4.5 mg capsule Take 4.5 mg by mouth once daily. ? ? ? multivitamin (CLASSIC ) 28 mg iron- 800 mcg tab(s) Take 1 tablet by mouth once daily. ? ? ? B cmplx 4/vit D3/C/folic/zinc (VITAL-D RX ORAL) Take by mouth. ? ? ? naltrexone capsule 4.5 mg (CPD) Take 1 capsule by mouth once daily. ? ? ? sertraline (ZOLOFT) 50 mg tablet Take 50 mg by mouth once daily. ? ? ? No current facility-administered medications for this visit. ? ? ALLERGIES: Patient has no known allergies. ? PERSONAL HISTORY: SOCIAL HISTORY Social History ? Tobacco Use ? Smoking status: Former ? ? Years: 9.00 ? ? Types: Cigarettes ? ? Quit date: 03/2018 ? ? Years since quittin.4 ? Smokeless tobacco: Never Substance Use Topics ? Alcohol use: Not Currently ? ? Comment: socially ? Drug use: No ? FAMILY HISTORY: FAMILY HISTORY FAMILY HISTORY Problem Relation Age of Onset ? Heart Mother ? ? Hyperlipidemia Mother ? ? Heart disease Mother ? ? No Known Problems Father ? ? No Known Problems Sister ? ? other (PCOS) Sister ? ? Stroke Maternal Grandmother ? ? Heart Attack Maternal Grandmother ? ? Heart Maternal Grandfather ? ? Heart disease Paternal Grandmother ? ? Breast Cancer Paternal Grandmother ? ? Stroke Paternal Grandmother ? ? No Known Problems Paternal Grandfather ? ? No Known Problems Daughter ? ? ? REVIEW OF SYMPTOMS: negative except as noted above PHYSICAL EXAMINATION: ? VITALS: Blood pressure 123/80, weight 268 lb (121.6 kg), last menstrual period 11/06/2021, currently . ? GENERAL: The patient is well nourished, well hydrated in no acute distress. , The patient is oriented to time, place, and person. NECK: full range of motion ABD: gravid, non tender ? IMPRESSION: 39 weeks, obesity in , previous cs, ivf ? ? PLAN: Repeat elective cs at 39 weeks ? Pt has been counseled on risks/benefits and alternatives of surgery including but not limited to anesthesia, bleeding, infection, injury to pelvic structures including bowel, bladder, ureters and vessels. Pt wishes to proceed with surgery at this time. Reviewed possible need for blood transfusion. ? Pre and post op instructions reviewed ? ? I have reviewed and updated past medical and surgical history, medications and allergies Tierra Varghese MD ?9:38 AM Routine Office Visit on 08/25/2022 Routine Office Visit on 08/25/2022 Note shared with patient
[2022-08-30] VITALS (20 sets, daily range): BP systolic 97–122; BP diastolic 47–67; PULSE 86–118; RESP 16–19; TEMP 36.4–37.1; O2SAT 95–100; BMI 45.8
[2022-08-30] MEDS: Lactated Ringers 1,000 ML 999 ML IV (09:45)
[2022-08-30 10:11] LABS: Absolute Lymphocyte Count 2.24 X10^3/uL (0.83-4.51); Absolute Neutrophil Count 11.1 X10^3/uL (2.0-7.7); Basophil# 0.05 X10^3/uL; Basophil% 0.4 % (0-1); Eosinophil# 0.13 X10^3/uL; Eosinophils% 0.9 % (0-5); Hematocrit 35.7 % (37-47); Hemoglobin 11.5 g/dL (12.0-15.0); Lymphocyte # 2.24 X10^3/ul (0.83-4.51); Lymphocyte % 15.7 % (19-41); Mean Corp Hgb Conc 32.2 g/dL (32-36); Mean Corpuscular Hgb 28.2 pg (27.0-32.0); Mean Corpuscular Volume 87.5 fL (81-99); Mean Platelet Vol. 10.9 fl (6.2-12.0); Monocyte# 0.63 X10^3/uL; Monocyte% 4.4 % (0-10); NRBC Flagged by Analyzer 0 % (0-5); Neutrophil # 11.11 X10^3/uL (2.7-7.7); Neutrophil % 77.8 % (47-70); Platelet Count 308 K/mm3 (150-450); RBC Distribution Width CV 14.7 % (11.6-14.6); RBC Distribution Width SD 47.5 fl (35.1-43.9); Red Blood Count 4.08 M/mm3 (4.2-5.4); White Blood Count 14.3 K/mm3 (4.4-11.0)
[2022-08-30] MEDS: Acetaminophen 500 MG Tablet 1000 MG PO ×3 (10:33→23:12)
[2022-08-30] MEDS: Lactated Ringers 1,000 ML 150 ML IV (10:58)
[2022-08-30] MEDS: Sodium Citrate/Citric Acid 30 ML UDC PO (11:16)
--- NOTE | 2022-08-30 12:18 | EX.PCM.OBRPT ---
Details Operative Information Date of Procedure: 08/30/22 Pre-Operative Diagnosis: 39 weeks, elective repeat cs, LGA Post-Operative Diagnosis: same, live male Indications for : Repeat Elective Classification: Scheduled Procedure Type: low transverse (extended midline vertical during delivery of head- Considered T. ) Type of Anesthesia: Spinal Antibiotic Given: Ancef 3 grams IV x1 Drain: Garcia to straight drain Estimated Blood Loss: 700 Fluids Replaced: 1000 Procedure Start Time: 11:41 Procedure Stop Time: 12:23 Time of Delivery: 11:49 Findings Description of Procedure: After informed consent was obtained the patient was taken the operating room she was given spinal anesthesia. She was then placed in the supine position. She was prepped and draped in the normal sterile fashion. Anesthesia was found to be adequate. At this time a Pfannenstiel skin incision was made with a knife was carried down to the underlying layer of the fascia. The fascial incision was then extended laterally using curved Arzola scissor. Attention was then turned to the superior aspect of the fascial edge was grasped with 2 straight [place] clamps tented up and the rectus muscle dissected off sharply using curved Arzola scissor. Attention was then turned to the inferior aspect where again [place] clamps were placed in the rectus muscles were tented up and the fascia was dissected off sharply using the curved Arzola scissor. Rectus muscles were then in the midline bluntly and peritoneum was entered bluntly. Gentle opposing traction was placed. think lower uterine segment. Bladder attached high on uterus, taken down with metezenbaum scissor. Scalpel was used to make a uterine incision in a low transverse fashion. The uterus was then entered bluntly gentle opposing traction was placed to extend this incision. Membranes were thin meconium. 's head was brought to the uterine incision was delivered atraumatically. delayed cord clamping. Cord was clamped and cut was handed to the waiting nursery team. The Placenta was removed from the uterus. The uterus was then removed from the abdominal cavity. The uterus was cleared of all clots and debris using a lap. at this time it was noted that the uterine incision extended midline vertically about 4cm. the defect was repaied usng 1 viryl in running locked fashion followed by a seocnd imbricating layer-next At this time the low transverse uterine incision was reapproximated using #1 Vicryl in a running locked fashion. Hemostasis was appreciated. Posterior cul-de-sac was then cleared of all clots and debris. tubes and ovaries normal. Uterus was placed back in the abdominal cavity. Gutters were cleared of all clots and debris. Uterine incision was reevaluated and noted to be of excellent hemostasis. Bre placed. At this time the peritoneum was grasped with Kellys reapproximated using #2 Vicryl suture in a running fashion. Fascia was then reapproximated using #1 PDS in a running fashion. Bre placed over rectus muscle Subcu layer was reapproximated with #2 0 plain gut suture in an interrupted fashion. Subcu layer was closed using 4-0 Vicyrl on a Malcom needle in a subcu fashion. Dry sterile dressing was applied. Instrument lap needle count correct ?2. Anticipated normal postoperative course. Presentation: Positive for Vertex Amniotic Membrane Rupture Type: Artificial Amniotic Fluid Description: Lightly stained meconium Placental Delivery Description: Expressed Placenta Disposition: [facility] Cord Vessel Description: 3 Vessels Cord Entanglement: None A Gender: Male (1 minute): 9 (5 minute): 9 Delayed Cord Clamping: Yes Complications Risks of Surgery Discussed w/Patient: Bleeding, Anesthesia Risks, Infection, Need for Future C-Sections and Injury to surrounding structure(s) including bowel and bladder Complications: Extension of uterine incision to a T with delivery- recommend delivery by 37 weeks for next . reviewed with family.
[2022-08-30] MEDS: Oxytocin 15 Units/NS 250ml 15 UNITS/250 ML IV.SOLN 83 UNITS IV (12:45)
[2022-08-30] MEDS: Ketorolac 30 MG/ML Syringe IV ×2 (13:08→18:48)
[2022-08-30] MEDS: Lactated Ringers 1,000 ML 100 ML IV (15:44)
[2022-08-30] MEDS: Sertraline 50 MG Tablet PO (23:12)
[2022-08-31] VITALS (11 sets, daily range): BP systolic 98–114; BP diastolic 46–64; PULSE 76–91; RESP 16–20; TEMP 36.2–36.7; O2SAT 96–100
[2022-08-31] MEDS: Enoxaparin 40 MG/0.4 ML Syringe SC ×2 (00:08→12:09)
[2022-08-31] MEDS: Ketorolac 30 MG/ML Syringe IV ×2 (00:09→05:51)
[2022-08-31] MEDS: 0.9% Saline Lock 10 ML Syringe IV ×2 (00:09→05:51)
[2022-08-31] MEDS: Acetaminophen 500 MG Tablet 1000 MG PO ×3 (05:51→18:19)
[2022-08-31 06:39] LABS: Hematocrit 30.2 % (37-47); Hemoglobin 9.4 g/dL (12.0-15.0); Mean Corp Hgb Conc 31.1 g/dL (32-36); Mean Corpuscular Hgb 27.1 pg (27.0-32.0); Mean Platelet Vol. 11.2 fl (6.2-12.0); Platelet Count 329 K/mm3 (150-450); RBC Distribution Width CV 14.8 % (11.6-14.6); RBC Distribution Width SD 47.4 fl (35.1-43.9); Red Blood Count 3.47 M/mm3 (4.2-5.4); White Blood Count 14.2 K/mm3 (4.4-11.0)
--- NOTE | 2022-08-31 08:49 | PCM.PN.OB ---
Subjective Subjective Pain well controlled. No nausea or vomiting. Ambulating without difficulty. Objective Data Objective Data Vital Signs: Vital Signs Temp Pulse Resp BP Pulse Ox O2 Del Method 98.0 F 89 18 98/46 L 99 Room Air 08/31/22 04:10 08/31/22 05:49 08/31/22 05:49 08/31/22 04:10 08/31/22 05:49 08/31/22 05:49 Oxygen Delivery Method Room Air Weight: 121.109 kg Body Mass Index (BMI) 45.8 Intake & Output: Intake and Output for Last 24 Hours 08/29/22 08/30/22 08/31/22 23:59 23:59 23:59 Intake Total 3162.5 / 3162.5 Output Total 1450 / 1450 750 / 750 Balance 1712.5 / 1712.5 -750 / -750 Lab / Micro Data Result Diagrams: 08/31/22 06:03 Labs: Laboratory Results - last 24 hr 08/30/22 09:45: WBC 14.3 H, RBC 4.08 L, Hgb 11.5 L, Hct 35.7 L, MCV 87.5, MCH 28.2, MCHC 32.2, RDW Std Deviation 47.5 H, RDW Coeff of Raj 14.7 H, Plt Count 308, MPV 10.9, Immature Gran % (Auto) 0.800, Neut % (Auto) 77.8 H, Lymph % (Auto) 15.7 L, Morton % (Auto) 4.4, Eos % (Auto) 0.9, Baso % (Auto) 0.4, Absolute Neuts (auto) 11.1 H, Absolute Lymphs (auto) 2.24, Nucleated RBC % 0 08/30/22 09:45: Blood Type A POSITIVE, Antibody Screen NEGATIVE 08/31/22 06:03: WBC 14.2 H, RBC 3.47 L, Hgb 9.4 L, Hct 30.2 L, MCV 87.0, MCH 27.1, MCHC 31.1 L, RDW Std Deviation 47.4 H, RDW Coeff of Raj 14.8 H, Plt Count 329, MPV 11.2 Physical Exam Narrative Bandages clean dry and intact Const alert General Appearance: cooperative GI GI Narrative: soft, moderate distention, fundus firm, appropriately tender. Abdominal bandage clean dry and intact Assessment & Plan (1) delivery delivered: PLAN: Postoperative day #1 status post repeat section where the uterine incision had to be extended to a T. Moderate acute blood loss anemia. Recheck CBC this afternoon. Patient is tolerating anemia well. is breast-feeding and doing well. Continue routine postoperative care and follow CBC and vitals.
[2022-08-31] MEDS: Ferrous Sulfate 325 MG Tablet PO (10:50)
[2022-08-31] MEDS: Senna/Docusate Sodium 1 Tablet PO (10:51)
[2022-08-31] MEDS: Ibuprofen 600 MG Tablet PO ×2 (12:12→17:33)
[2022-08-31 14:54] LABS: Hematocrit 29.8 % (37-47); Hemoglobin 9.3 g/dL (12.0-15.0); Mean Corp Hgb Conc 31.2 g/dL (32-36); Mean Corpuscular Hgb 27.4 pg (27.0-32.0); Mean Corpuscular Volume 87.6 fL (81-99); Mean Platelet Vol. 10.6 fl (6.2-12.0); Platelet Count 337 K/mm3 (150-450); RBC Distribution Width CV 15.1 % (11.6-14.6); RBC Distribution Width SD 48.2 fl (35.1-43.9); White Blood Count 14.1 K/mm3 (4.4-11.0)
[2022-08-31] MEDS: Sertraline 50 MG Tablet PO (21:41)
[2022-09-01] MEDS: Acetaminophen 500 MG Tablet 1000 MG PO ×2 (00:03→06:15)
[2022-09-01] MEDS: Ibuprofen 600 MG Tablet PO ×3 (00:04→12:00)
[2022-09-01] MEDS: Enoxaparin 40 MG/0.4 ML Syringe SC ×2 (00:04→12:18)
[2022-09-01 02:43] VITALS: BP 120/63; PULSE 75; RESP 18; TEMP 36.1; O2SAT 97
--- NOTE | 2022-09-01 08:25 | PCM.PN.OB ---
Objective Data Objective Data Vital Signs: Vital Signs Temp Pulse Resp BP Pulse Ox O2 Del Method 97 F L 75 18 120/63 97 Room Air 09/01/22 02:43 09/01/22 02:43 09/01/22 02:43 09/01/22 02:43 09/01/22 02:43 09/01/22 02:43 Oxygen Delivery Method Room Air Weight: 267 lb Body Mass Index (BMI) 45.8 Intake & Output: Intake and Output for Last 24 Hours 08/30/22 08/31/22 09/01/22 23:59 23:59 23:59 Intake Total 3162.5 / 3162.5 Output Total 1450 / 1450 750 / 750 Balance 1712.5 / 1712.5 -750 / -750 Lab / Micro Data Result Diagrams: 08/31/22 14:40 Labs: Laboratory Results - last 24 hr 08/31/22 14:40: WBC 14.1 H, RBC 3.40 L, Hgb 9.3 L, Hct 29.8 L, MCV 87.6, MCH 27.4, MCHC 31.2 L, RDW Std Deviation 48.2 H, RDW Coeff of Raj 15.1 H, Plt Count 337, MPV 10.6
--- NOTE | 2022-09-01 08:25 | PCM.DC.SUM ---
Providers Date of Admission: 08/30/22 Primary Care Physician: Dr. Tien Kirk MD Reason For Visit: REPEAT C SECTION Diagnosis Discharge Diagnosis (1) delivery delivered: Status: Acute Code(s): O82 - Encounter for delivery without indication Medications at Discharge Home Medications vits,calcium no.78-iron fumarate-folic acid 29 mg-1 mg tablet 1 tab PO DAILY 12/27/19 ferrous sulfate 325 mg (65 mg iron) tablet 325 mg PO DAILY ANEMIA 08/30/22 sertraline 50 mg tablet (Zoloft) 50 mg PO DAILY ANXIETY 08/30/22 acetaminophen 500 mg tablet 1,000 mg PO Q6 #0 tabs 09/01/22 ibuprofen 600 mg tablet 600 mg PO Q6 #0 tabs 09/01/22 oxycodone-acetaminophen 5 mg-325 mg tablet 1 tab PO Q6H 7 days #10 tabs 09/01/22 sennosides 8.6 mg-docusate sodium 50 mg tablet (Stool Softener-Stimulant Laxative) 1 - 2 tab PO DAILY #0 tabs 09/01/22 Weight / BMI Weight Weight: 267 lb Body Mass Index (BMI) 45.8 ABG / Lab / Microbiology Data Result Diagrams: 08/31/22 14:40 Laboratory: Laboratory Results - last 24 hr 08/31/22 14:40: WBC 14.1 H, RBC 3.40 L, Hgb 9.3 L, Hct 29.8 L, MCV 87.6, MCH 27.4, MCHC 31.2 L, RDW Std Deviation 48.2 H, RDW Coeff of Raj 15.1 H, Plt Count 337, MPV 10.6 Meaningful Use Info Meaningful Use Diagnoses (Choose all that apply): None applicable Discharge Plan Admission Admit Date/Time: 08/30/22 09:10 Primary Reason for Your Visit: Repeat section Attending Provider: Tierra Clay Primary Care Provider: Tien Kirk Consulting Providers: Elizabeth Grant Instructions Patient Instructions: After a Discharge Orders/Prescriptions Prescriptions: New acetaminophen 500 mg Tablet 1,000 mg PO Q6 Qty: 0 0RF ibuprofen 600 mg Tablet 600 mg PO Q6 Qty: 0 0RF sennosides-docusate sodium [Stool Softener-Stimulant Laxat] 8.6-50 mg Tablet 1 - 2 tab PO DAILY Qty: 0 0RF oxycodone-acetaminophen [oxycodone-acetaminophen] 5-325 mg tablet 1 tab PO Q6H 7 Days Qty: 10 0RF Continued vit,[id number] 1 TABLET tablet 1 tab PO DAILY ferrous sulfate 325 MG tablet 325 mg PO DAILY sertraline [Zoloft] 50 mg Tablet 50 mg PO DAILY Discontinued aspirin [Baby Aspirin] 81 mg Tablet,Chewable 81 mg PO DAILY Referrals / Follow Up: Tien Kirk MD [Primary Care Provider] - Disposition Disposition (needs filled in before D/C Order can be placed): Home, Self Care
[2022-09-01 09:15] VITALS: BP 115/59; PULSE 70; RESP 16; TEMP 36.5
[2022-09-01] MEDS: Ferrous Sulfate 325 MG Tablet PO (11:07)
[2022-09-01] MEDS: Senna/Docusate Sodium 1 Tablet PO (11:07)
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
== END 2022-09-01 12:25 | disposition home or self-care (01) | DRG 788 ==
PROVIDERS: Obstetrics & Gynecology; Admitting Provider Obstetrics & Gynecology; Visit Provider Obstetrics & Gynecology
PROC: 10D00Z1 Extraction of Products of Conception, Low, Open Approach (ICD-10-PCS; CPT 59514; principal; 2022-08-30 11:15)
DX: O34.211 Maternal care for low transverse scar from previous cesarean delivery (principal); E66.9 Obesity, unspecified; O71.81 Laceration of uterus, not elsewhere classified; O77.0 Labor and delivery complicated by meconium in amniotic fluid; Z37.0 Single live birth; Z3A.39 39 weeks gestation of pregnancy; O99.214 Obesity complicating childbirth; Z87.891 Personal history of nicotine dependence
CPT/HCPCS: 59050; 85025; 85027; 86850; 86900; 86901; 99218; 99251; J7120; A4216; G0378; G0463; J2405

== ENCOUNTER 2024-10-25 23:10 | Emergency (ER) | payer OTHER, SELFPAY ==
[2024-10-25 23:11] VITALS: BP 131/85; PULSE 98; RESP 16; TEMP 36.1; O2SAT 99; BMI 43.4
[2024-10-26 00:15] VITALS: O2SAT 99
--- NOTE | 2024-10-26 00:37 | RAD_ITS ---
INDICATION: cough EXAMINATION/TECHNIQUE: X-RAY - XR Chest 2 Views COMPARISON: None. FINDINGS: The lungs are clear. The cardiomediastinal silhouette is unremarkable. No pleural effusion or pneumothorax. No acute osseous abnormalities. RAD/Chest PA and Lateral IMPRESSION: No acute radiographic abnormalities. Electronically Signed: Forest Carrasco MD at 1:34 EST ,
[2024-10-26 00:44] VITALS: PULSE 93; RESP 20
[2024-10-26] MEDS: Ipratropium/Albuterol Sulfate 3 ML AMPUL.NEB INHALATION (00:44)
[2024-10-26] MEDS: Benzonatate 100 MG Capsule 200 MG PO (00:52)
--- NOTE | 2024-10-26 02:20 | EX.ED.DYSGE1 ---
HPI History of Present Illness Chief Complaint: Cough Informant: patient Narrative Narrative: Patient is a 34-year-old female with past medical history of PCOS and anxiety. She states that multiple children of hers have been sick. She states she has had 4 to 5 days of congestion cough and shortness of breath. She states this evening she felt she was having more difficulty breathing when trying to lay down and go to bed. She states she feels that her anxiety got the best of her and she presents to the hospital with concern for potential pneumonia from her sick symptoms and shortness of breath sensation. [facility] Medical History (Updated 10/26/24 @ 06:[address] Ramez Pitt, DO) History of blood transfusion Conceived by in vitro fertilization PCOS (polycystic ovarian syndrome) Infertility hemorrhage Anxiety Home Medications ?Medication ?Instructions ?Recorded ?Last Taken ?Type vits,calcium no.78-iron 1 tab PO DAILY 12/27/19 08/29/22 10:00 History fumarate-folic acid 29 mg-1 mg tablet ferrous sulfate 325 mg (65 mg 325 mg PO DAILY ANEMIA 08/30/22 08/29/22 10:00 History iron) tablet sertraline 50 mg tablet (Zoloft) 50 mg PO DAILY ANXIETY 08/30/22 08/29/22 10:00 History acetaminophen 500 mg tablet 1,000 mg (2 x 500 mg) PO Q6 #0 tabs 09/01/22 Unknown Rx ibuprofen 600 mg tablet 600 mg PO Q6 #0 tabs 09/01/22 Unknown Rx oxycodone-acetaminophen 5 mg-325 1 tab PO Q6H 7 days #10 tabs 09/01/22 Unknown Rx mg tablet sennosides 8.6 mg-docusate sodium 1 - 2 tab PO DAILY #0 tabs 09/01/22 Unknown Rx 50 mg tablet (Stool Softener-Stimulant Laxative) albuterol sulfate 90 mcg/actuation 2 puff inhalation Q4H PRN PRN 10/26/24 Unknown Rx aerosol inhaler (Ventolin HFA) Wheezing/SOB #1 device benzonatate 200 mg capsule 200 mg PO TID PRN cough #30 caps 10/26/24 Unknown Rx prednisone 20 mg tablet 40 mg (2 x 20 mg) PO DAILY 5 days 10/26/24 Unknown Rx #10 tabs Allergy/AdvReac Type Severity Reaction Status Date / Time No Known Allergies Allergy Verified 10/25/24 23:11 Surgical History Previous section Social History Smoking Status: Former smoker ROS ROS ED Constitutional Constitutional ED: Denies chills or fever(s) Eyes Eyes: Denies change in vision ENT ENT ED: Reports rhinorrhea and sore throat Cardiovascular Cardiovascular: Denies chest pain Respiratory/Chest Respiratory/Chest: Reports cough and dyspnea Gastrointestinal Gastrointestinal: Denies abdominal pain, diarrhea, nausea or vomiting Genitourinary Genitourinary ED: Denies dysuria Musculoskeletal Musculoskeletal: Reports myalgias Integumentary Denies rash Neurologic Neurologic: Denies headache(s) Psychiatric Psychiatric: Reports anxiety Hematologic/Lymphatic Hematologic/Lymphatic: Denies easy bleeding or easy bruising Allergic/Immunologic Allergic/Immunologic ED: Denies mouth swelling or tongue swelling EXAM Physical Exam Const Vital Signs: 10/25/24 23:11 10/26/24 00:15 10/26/24 00:44 Temperature 97 F L Temperature Source Temporal Pulse Rate 98 93 Respiratory Rate 16 20 H Respiratory Effort Normal Non-Labored Respiratory Depth Normal Respiratory Pattern Normal Normal Blood Pressure 131/85 H Blood Pressure Mean 100 Pulse Ox 99 Oxygen Delivery Method Room Air Room Air 10/26/24 02:25 Temperature Temperature Source Pulse Rate 83 Respiratory Rate 18 Respiratory Effort Respiratory Depth Respiratory Pattern Blood Pressure Blood Pressure Mean Pulse Ox 98 Oxygen Delivery Method Positive well nourished, well developed and obese General Appearance ED: well developed; Negative for pallor Nutritional Appearance: obese HEENT HEENT Narrative: No tongue or lip swelling no oral lesions no airway edema or compromise Nasal mucosa is hyperemic and boggy with enlarged inferior nasal turbinate There is cobblestoning the posterior pharynx consistent with sinus drainage. No secondary findings to suggest infection Bilateral TMs are slightly retracted without secondary changes to suggest infection Eyes PERRL and EOMs intact bilaterally General Eye ED: Negative for scleral icterus Neck supple Neck Narrative: No nuchal rigidity or meningeal signs Chest Wall palpation of chest normal Resp normal respiratory effort Resp Narrative: Breath sounds are slightly diminished throughout with faint wheeze and rhonchi in the bilateral lower lobes without signs of respiratory distress Cardio regular rate and regular rhythm Extremity normal to inspection Extremity Narrative: No asymmetric edema no pitting edema negative Homans' sign bilaterally Neuro oriented x3, CN's II-XII intact bilaterally and no sensory deficits noted Sensorium / Orientation: alert Motor Exam: strength 5/5 throughout Psych Mood & Affect: anxious Skin no rashes or lesions noted General Skin Exam: Negative for jaundice or pallor MDM MDM MDM Narrative Medical decision making narrative: Patient arrived to the ER with stable vitals and in no signs of respiratory distress. She reported multiple sick kids at home with similar symptoms. Her constellation of symptoms and exam is most consistent with a viral URI which could be related to COVID influenza or RSV and therefore swab was obtained. As she reported shortness of breath there is concern for pneumonia versus pneumothorax versus pleural effusion. Therefore an x-ray was ordered. With stable vitals and no signs of distress I do not feel the need for blood work and as she has cough and congestion leading to her shortness of breath there is low concern for cardiovascular disease. X-ray revealed no acute lung pathology. Viral swab was positive for RSV which correlates with her symptoms. At this time she is in no respiratory distress she is not hypoxic or requiring supplemental oxygen and so she can given symptomatic medications and is otherwise safe for discharge History & Record Review Discussion w/independent historian: Patient Radiography Diagnostic Testing: Clinical Impression(s) from Imaging Studies Chest X-Ray 10/26/24 00:37 IMPRESSION: No acute radiographic abnormalities. Electronically Signed: Forest Carrasco MD at 1:34 EST , Chest x-ray as interpreted by the emergency medicine physician reveals no acute infiltrate pneumothorax or pleural effusion Discharge Plan Triage Chief Complaint: Cough ED Provider: Ramez Pitt Dx/Rx/DC Orders Clinical Impression: Respiratory syncytial virus (RSV) infection, Anxiety, PCOS (polycystic ovarian syndrome) Instructions: RSV (Respiratory Syncytial Virus) Prescriptions: New albuterol sulfate [Ventolin HFA] 90 mcg/actuation HFA aerosol inhaler 2 puff inhalation Q4H PRN PRN (Reason: Wheezing/SOB) Qty: 1 0RF benzonatate 200 mg capsule 200 mg PO TID PRN (Reason: cough) Qty: 30 0RF prednisone 20 mg tablet 40 mg PO DAILY 5 Days Qty: 10 0RF No Action vit,[id number] 1 TABLET tablet 1 tab PO DAILY ferrous sulfate 325 MG tablet 325 mg PO DAILY sertraline [Zoloft] 50 mg Tablet 50 mg PO DAILY acetaminophen 500 mg Tablet 1,000 mg PO Q6 Qty: 0 0RF ibuprofen 600 mg Tablet 600 mg PO Q6 Qty: 0 0RF sennosides-docusate sodium [Stool Softener-Stimulant Laxat] 8.6-50 mg Tablet 1 - 2 tab PO DAILY Qty: 0 0RF oxycodone-acetaminophen [oxycodone-acetaminophen] 5-325 mg tablet 1 tab PO Q6H 7 Days Qty: 10 0RF Primary Care Provider: Tien Kirk Referrals: Tien Kirk MD [Primary Care Provider] - Activity Restrictions/Additional Instructions: You tested positive for RSV. This is a viral infection that will cause congestion cough and shortness of breath sensation. It will last on average 10 to 14 days. Take the prescribed medication as directed to control symptoms and return to the ER should you have any further concern Print Language: Portuguese Disposition Disposition: Home, Self Care Discharge Date/Time: 10/26/24 02:31
[2024-10-26 02:25] VITALS: PULSE 83; RESP 18; O2SAT 98
== END 2024-10-26 02:31 | disposition home or self-care (01) ==
PROVIDERS: Emergency Provider Emergency Medicine; Visit Provider Emergency Medicine
DX: J20.5 Acute bronchitis due to respiratory syncytial virus (principal); F41.9 Anxiety disorder, unspecified; E28.2 Polycystic ovarian syndrome; Z87.891 Personal history of nicotine dependence
CPT/HCPCS: 71046; 87631; 94640; 99283

== ENCOUNTER → 2025-04-25 | Outpatient (CLI) | payer OTHER, SELFPAY | END | disposition home or self-care (01) | LOC: OPBI 14:00 | PROVIDERS: PCP Internal Medicine; Referring Provider Obstetrics & Gynecology; Visit Provider Obstetrics & Gynecology | DX: N64.4 Mastodynia (principal); N63.11 Unspecified lump in the right breast, upper outer quadrant; R92.30 Dense breasts, unspecified | CPT/HCPCS: 76642; 77062; 77066; G0279 ==